=== PATIENT | female | born 1995 | race Caucasian/White ===

== ENCOUNTER 2018-04-01 18:39 | Emergency (ER) | payer OTHER ==
[~2018-04-01] VITALS: Ht 154.9 cm; Wt 65.8 kg
== END 2018-04-01 23:36 | disposition home or self-care (01) ==
LOC: ER 18:39
DX: K60.2 Anal fissure, unspecified (principal)

== ENCOUNTER 2018-10-01 20:49 | Emergency (ER) | payer OTHER ==
[~2018-10-01] VITALS: Ht 154.9 cm; Wt 57.2 kg
== END 2018-10-01 23:46 | disposition home or self-care (01) ==
LOC: ER 20:49
DX: N39.0 Urinary tract infection, site not specified (principal)

== ENCOUNTER 2018-10-29 16:00 | Emergency (ER) | payer OTHER ==
[~2018-10-29] VITALS: Ht 154.9 cm; Wt 56.7 kg
== END 2018-10-29 18:38 | disposition home or self-care (01) ==
LOC: ER 16:00
DX: R00.2 Palpitations (principal); F06.4 Anxiety disorder due to known physiological condition

== ENCOUNTER 2019-01-22 14:00 | Outpatient (CLI) | payer OTHER | END 2019-01-22 14:08 | disposition home or self-care (01) | LOC: SONOGRAMA 14:00 | DX: N64.4 Mastodynia (principal) ==

== ENCOUNTER 2019-08-06 13:09 | Emergency (ER) | payer OTHER ==
[~2019-08-06] VITALS: Ht 154.9 cm; Wt 56.7 kg
[2019-08-06] MEDS ORDERED: PROMETH-CODEIN 65 ML PO (14:09)
[2019-08-06] MEDS ORDERED: ZITHROMAX500 MG PO (14:09)
[2019-08-06] MEDS ORDERED: MUCINEX1200 MG PO (14:09)
== END 2019-08-06 14:20 | disposition home or self-care (01) ==
LOC: ER 13:09
DX: R05 Cough (principal)

== ENCOUNTER 2021-05-04 18:26 | Emergency (ER) | payer OTHER ==
[~2021-05-04] VITALS: Ht 154.9 cm; Wt 68.0 kg
[~2021-05-04 18:26] MED LIST: MUCINEX1200 MG PO; PROMETH-CODEIN 65 ML PO; ZITHROMAX500 MG PO
[2021-05-04] MEDS ORDERED: PEPCID AC20 MG PO (23:23)
== END 2021-05-04 23:36 | disposition home or self-care (01) ==
LOC: ER 18:26
DX: K29.70 Gastritis, unspecified, without bleeding (principal); K59.89 Other specified functional intestinal disorders